=== PATIENT | male | born 1960 | race Caucasian/White ===

== ENCOUNTER 2017-01-25 20:05 | Emergency (ER) | payer SELFPAY | END 2017-01-25 22:05 | disposition left against medical advice (07) | LOC: D.ER 20:05 | DX: Z02.9 Encounter for administrative examinations, unspecified (principal) ==

== ENCOUNTER 2017-04-24 22:01 | Emergency (ER) | payer SELFPAY | END 2017-04-24 23:42 | disposition home or self-care (01) | LOC: D.ER 22:01 | DX: S80.812A Abrasion, left lower leg, initial encounter (principal); S50.812A Abrasion of left forearm, initial encounter; W11.XXXA Fall on and from ladder, initial encounter; Y93.89 Activity, other specified; Y92.019 Unspecified place in single-family (private) house as the place of occurrence of the external cause; S83.91XA Sprain of unspecified site of right knee, initial encounter; S93.402A Sprain of unspecified ligament of left ankle, initial encounter ==

== ENCOUNTER 2017-10-10 18:43 | Emergency (ER) | payer SELFPAY ==
[2017-10-10 19:32] LABS: BASOPHILS 0 % (0-2); EOSINOPHILS 0.3 % (0-7); HEMATOCRIT 41.5 % (42.0-54.0); HEMOGLOBIN 14.4 g/dL (13.5-17.5); IMMATURE GRANULOCYTES 0.2 % (0-5); LYMPHOCYTES 10.2 % (15-50); MCH 31.4 pg (26.0-34.0); MCHC 34.7 g/dL (31.0-37.0); MCV 90.4 fL (80.0-100.0); MEAN PLATELET VOLUME 9.9 fL (7.4-10.4); MONOCYTES 12.9 % (2-11); NEUTROPHILS 76.4 % (40-80); RBC 4.59 10x6/uL (4.20-6.10); WBC 9.2 10x3/uL (4.8-10.8)
[2017-10-10 19:49] LABS: ALBUMIN 3.4 g/dL (3.4-5.0); ALKALINE PHOSPHATASE 61 U/L (46-116); ALT (SGPT) 39 U/L (10-68); CALC OSMOLALITY 276 mosm/kg (275-300); CALCIUM 8.7 mg/dL (8.5-10.1); CARBON DIOXIDE 30.8 mmol/L (21.0-32.0); CHLORIDE - SERUM 101 mmol/L (98-107); GLUCOSE 120 mg/dL (74-106); PROTEIN - SERUM 7.3 g/dL (6.4-8.2); SODIUM 138 mmol/L (136-145); UREA NITROGEN 12 mg/dL (7-18); eGFR NON AFRICAN AMERICAN 82 mL/min (90-120)
[2017-10-10 20:02] LABS: PLATELET COUNT 113 10x3/uL (130-400)
== END 2017-10-10 21:11 | disposition home or self-care (01) ==
LOC: D.ER 18:43
PROVIDERS: Emergency Medicine
DX: J11.1 Influenza due to unidentified influenza virus with other respiratory manifestations (principal); J44.1 Chronic obstructive pulmonary disease with (acute) exacerbation; F17.200 Nicotine dependence, unspecified, uncomplicated

== ENCOUNTER 2018-04-09 19:10 | Emergency (ER) | payer SELFPAY ==
[~2018-04-09] VITALS: Ht 175.3 cm; Wt 74.8 kg
[2018-04-09 19:23] VITALS: Ht 175.3 cm; Wt 74.8 kg
[2018-04-09] MEDS ORDERED: TYLENOL W/CODEI1 TAB PO (20:57)
[2018-04-09] MEDS ORDERED: ROBAXIN-750750 MG PO (20:57)
[2018-04-09 21:34] VITALS: BP 122/70
== END 2018-04-09 21:35 | disposition home or self-care (01) ==
LOC: D.ER 19:10
DX: M54.31 Sciatica, right side (principal); M62.830 Muscle spasm of back; F17.200 Nicotine dependence, unspecified, uncomplicated

== ENCOUNTER 2019-02-16 12:46 | Emergency (ER) | payer SELFPAY ==
[~2019-02-16] VITALS: Ht 175.3 cm; Wt 77.3 kg
[~2019-02-16 12:46] MED LIST: ROBAXIN-750750 MG PO; TYLENOL W/CODEI1 TAB PO
[2019-02-16 13:12] VITALS: Ht 175.3 cm; Wt 77.3 kg
[2019-02-16 13:48] LABS: BASOPHILS 0.3 % (0-2); EOSINOPHILS 1.1 % (0-7); HEMATOCRIT 41.6 % (42.0-54.0); HEMOGLOBIN 15.3 g/dL (13.5-17.5); IMMATURE GRANULOCYTES 0.3 % (0-5); LYMPHOCYTES 27.4 % (15-50); MCH 32.4 pg (26.0-34.0); MCHC 36.8 g/dL (31.0-37.0); MCV 88.1 fL (80.0-100.0); MEAN PLATELET VOLUME 10.1 fL (7.4-10.4); MONOCYTES 6.4 % (2-11); NEUTROPHILS 64.5 % (40-80); PLATELET COUNT 128 10x3/uL (130-400); RBC 4.72 10x6/uL (4.20-6.10); RDW 12.1 % (11.5-14.5); WBC 6.6 10x3/uL (4.8-10.8)
[2019-02-16 14:05] LABS: ALBUMIN 3.9 g/dL (3.4-5.0); ALKALINE PHOSPHATASE 76 U/L (46-116); ALT (SGPT) 69 U/L (10-68); BILIRUBIN - TOTAL 0.54 mg/dL (0.2-1.3); CALC OSMOLALITY 283 mosm/kg (275-300); CALCIUM 8.9 mg/dL (8.5-10.1); CARBON DIOXIDE 31.1 mmol/L (21.0-32.0); CHLORIDE - SERUM 105 mmol/L (98-107); CREATININE - SERUM 0.8 mg/dL (0.6-1.3); GLUCOSE 131 mg/dL (74-106); POTASSIUM - SERUM 3.7 mmol/L (3.5-5.1); PROTEIN - SERUM 7.4 g/dL (6.4-8.2); SODIUM 141 mmol/L (136-145); UREA NITROGEN 15 mg/dL (7-18); eGFR NON AFRICAN AMERICAN > 90 mL/min (90-120)
[2019-02-16 14:12] LABS: TROPONIN-I < 0.017 ng/mL (0.000-0.060)
[2019-02-16] MEDS ORDERED: IPRAT-ALBUT 0.5-3 ML UPD (15:18)
[2019-02-16] MEDS ORDERED: COMBIVENT RESPIM4 GM INH (15:18)
[2019-02-16 16:11] VITALS: BP 136/72
== END 2019-02-16 16:12 | disposition home or self-care (01) ==
LOC: D.ER 12:46
PROVIDERS: Family Medicine
DX: J44.9 Chronic obstructive pulmonary disease, unspecified (principal)